=== PATIENT | female | born 1980 | race Caucasian/White ===

== ENCOUNTER 2023-07-11 00:26 | Emergency (ER) | payer MEDICAID, OTHER ==
[~2023-07-11] VITALS: Ht 152.4 cm; Wt 79.3 kg
[2023-07-11 00:37] VITALS: BP 134/98
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
[2023-07-11] MEDS ORDERED: diphenhydrAMINE INJ 50 MG/ML VIAL IVP ONE (01:15)
[2023-07-11] MEDS ORDERED: PROCHLORPERAZINE 10 MG/2ML INJ (COMPAZINE) IV ONE (01:15)
[2023-07-11] MEDS ORDERED: KETOROLAC INJ 30 MG/ML VIAL IVP ONE (01:15)
--- NOTE | 2023-07-11 06:25 | Diagnostic Imaging Report ---
PROCEDURE: CT head without contrast. TECHNIQUE: Multiple contiguous axial images were obtained through the brain without the use of intravenous contrast. Auto Exposure Controls were utilized during the CT exam to meet ALARA standards for radiation dose reduction. INDICATION: Headache, severe. COMPARISON: None FINDINGS: The ventricles and cortical sulci are age-appropriate. There is no midline shift or mass effect. No acute intracranial hemorrhage is seen. There is no CT evidence of acute territorial ischemia. The calvarium appears intact. The visualized paranasal sinuses are clear. IMPRESSION: 1. No acute intracranial hemorrhage or CT evidence of acute territorial ischemia. No significant changes from the preliminary report. Dictated by: Dictated on workstation # [id number]
== END 2023-07-11 04:56 | disposition home or self-care (01) ==
LOC: ER 00:31
DX: G43.909 Migraine, unspecified, not intractable, without status migrainosus (principal)
CPT/HCPCS: 70450